=== PATIENT | female | born 1970 | race Caucasian/White ===

== ENCOUNTER 2019-09-07 08:58 | Emergency (ER) | payer OTHER ==
[2019-09-07 09:06] VITALS: BMI 23.3
--- NOTE | 2019-09-07 10:11 | PDOC ---
History of Present Illness - General Chief Complaint: Vaginal Bleeding Stated Complaint: 8WKS/ BLEEDING Time Seen by Provider: 09/07/19 09:47 History Source: Patient Exam Limitations: No Limitations - History of Present Illness Initial Comments: 09/07/19 10:05 48 yo female with 1 miscarriage and 1 early demise, currently 8 weeks preg (LMP 9/16) presents to te ED for 1 day of suprapubic and LLQ abdominal pain with vaginal bleeding. Pt followed by Dr[facility], only 1 appointment and no US yeast, no known lab results. Next appointment for US. Pt states she woke up with lower abdominal pain and some vaginal spotting, did not use pads, denies excessive blood loss and did not pass clots. Pain self resolved prior to exam. Denies F/C/N/V, back pain, CP, SOB, changes in bowel or bladder Past History - Past Medical History Allergies/Adverse Reactions: Allergies Allergy/AdvReac Type Severity Reaction Status Date / Time No Known Drug Allergies Allergy Verified 09/07/19 09:02 Home Medications: Ambulatory Orders Cephalexin [Keflex] 500 mg PO BID #14 capsule 09/07/19 Anemia: Yes Asthma: No Cancer: No Cardiac Disorders: No COPD: No Diabetes: No HTN: No Seizures: No Thyroid Disease: No - Surgical History Abdominal Surgery: Yes - Reproductive History Is Patient Now?: Yes (#): 5 Para: 2 Spontaneous : 2 - Psycho Social/Smoking Cessation Hx Smoking Status: No Smoking History: Never smoked Number of Cigarettes Smoked Daily: 0 Hx Alcohol Use: No Drug/Substance Use Hx: No Hx Substance Use Treatment: No Review of Systems - Review of Systems Constitutional: No: Chills, Fever Respiratory: No: Shortness of Breath Cardiac (ROS): No: Chest Pain : Yes: Other (vaginal bleeding, abdominal cramping). No: Burning, Dysuria, Frequency, Flank Pain Musculoskeletal: No: Back Pain Integumentary: No: Change in Color Neurological: No: Headache *Physical Exam - Vital Signs Last Vital Signs Temp Pulse Resp BP Pulse Ox 98.1 F 65 18 114/58 L 100 09/07/19 09:02 09/07/19 09:02 09/07/19 09:02 09/07/19 09:02 09/07/19 09:02 - Physical Exam General Appearance: Yes: Nourished, Appropriately Dressed. No: Apparent Distress HEENT: positive: EOMI Neck: positive: Supple. negative: Carotid bruit Respiratory/Chest: positive: Lungs Clear, Normal Breath Sounds. negative: Respiratory Distress, Accessory Muscle Use, Crackles, Rales, Rhonchi, Stridor, Wheezing Cardiovascular: positive: Regular Rhythm, Regular Rate, S1, S2. negative: Edema , JVD, Murmur Vascular Pulses: Dorsalis-Pedis (R): 4+, Doralis-Pedis (L): 4+ Female Pelvic Exam: positive: normal external exam, cervical os closed, normal adnexa, discharge (physiologic). negative: CMT, Bartholin mass, vaginal bleeding Gastrointestinal/Abdominal: positive: Flat, Soft. negative: Pulsatile Mass, Protuberent, Distended, Guarding, Rebound, Tenderness Musculoskeletal: negative: CVA Tenderness Extremity: positive: Normal Capillary Refill, Normal Inspection, Normal Range of Motion Integumentary: positive: Normal Color, Dry, Warm Neurologic: positive: Fully Oriented, Alert, Normal Mood/Affect ED Treatment Course - LABORATORY CBC & Chemistry Diagram: 09/07/19 10:05 09/07/19 10:05 - RADIOLOGY Radiology Studies Ordered: Category Date Time Status TRANSVAGINAL US PREG [US] Stat Ultrasound 09/07/19 10:04 Ordered Medical Decision Making - Medical Decision Making 09/07/19 13:25 48 yo female with 1 miscarriage and 1 early demise, currently 8 weeks preg (LMP 9/16) presents to te ED for 1 day of suprapubic and LLQ abdominal pain with vaginal bleeding. Pt followed by Dr[facility] D[facility], only 1 appointment and no US yeast, no known lab results. Next appointment for US. Pt states she woke up with lower abdominal pain and some vaginal spotting, did not use pads, denies excessive blood loss and did not pass clots. Pain self resolved prior to exam. Denies F/C/N/V, back pain, lightheadedness, dizziness, CP, SOB, changes in bowel or bladder vitals WNL DDX INLT: , laceration, UTI Hbg 8.7, not symptomatic anemia. Pt can f/u with PCP and OB appointment scheduled for Wednesday urine positive for UTI, will treat with Keflex 500 mg BID for 7 days Pelvic shows closed OS, no blood in the vagina, no CMT or adnexal tenderness US shows IUP 6 weeks 4 days, no FHR and likely demonstrating demise. May be to early to detect heart, will recommend f/u appointment with OB and US Pt BP noted to be in the 90s systolic, 500ml NS given, will reassess and DC home Pt BP on past charts shows low BP. Pt is not weak/dizzy/lightheaded and safe for DC home with strict return precautions Discharge - Discharge Information Problems reviewed: Yes Clinical Impression/Diagnosis: Vaginal bleeding affecting early Condition: Stable Disposition: HOME - Admission No - Additional Discharge Information Prescriptions: Cephalexin [Keflex] 500 mg PO BID #14 capsule - Follow up/Referral Referrals: Dakota Servin MD [Primary Care Provider] - - Patient Discharge Instructions Patient Printed Discharge Instructions: DI for Vaginal Bleeding During , DI for Vaginal Bleeding Additional Instructions: Consulte a hernandez mdico de atencin primaria y vaya a hernandez karina el para rashaad a hernandez mdico obstetra. Wilkinson el medicamento keflex segn lo prescrito sally los prximos 7 epstein para hernandez infeccin urinaria. Regrese a la juan jose de emergencias por sntomas nuevos o preocupantes, que incluyen, entre otros: aturdimiento, mareos, debilidad, fiebre, incapacidad para comer o beber, sangrado continuo. Krunal Print Language: ARMENIAN - Post Discharge Activity
--- NOTE | 2019-09-07 10:11 | PDOC ---
Attending Attestation - Resident Resident Name: ArmandoElijah - ED Attending Attestation I have performed the following: I have examined & evaluated the patient, The case was reviewed & discussed with the resident, I agree w/resident's findings & plan, Exceptions are as noted - HPI HPI: 09/07/19 10:09 currently 8 weeks preg (LMP 9/16) here with suprapubic and LLQ pain a/w vag bleeding since this morning. REports about 1 pads worth of bleeding with out clots since this morning. Denies fevers, chills, N/V/D, urinary sxs. Established care with Ob , Dr. Servin last week. Had labs drawn, she doesnt know results yet. Was scheduled for first US next week. Was not a planned . Otherwise, denies headaches, dizziness, cp, sob, LE edema, calf pain. - Physicial Exam PE: 09/07/19 11:44 Agree with resident exam - Medical Decision Making 09/07/19 11:44 48yo F presents to the ED at 8wk preg with vaginal bleeding. Vitals wnl Concern for threatened AB Plan: -pelvic exam -labs including B HCG -UA/UCx -TVUS -reassess 09/07/19 14:05 TVUS concerning for demise BHCG 11K No bleeding while in ED Exam with scant blood in vaginal vault, no midline or adnexal ttp. Abd exam benign Impression threatened Ab vs demise Pt's BP 90s/50s, likely pt's baseline as she states she often runs low. Denies dizziness, weakness, orthostatic dizziness Pt has f/u on Wednesday with her OB scheduled for rpt labs, f/u eval REturn precautions, including heavy bleeding (soaking through 2 or more pads/hr for more than 2 hours) discussed Pt expresses understanding I discussed the physical exam findings, ancillary test results and final diagnoses with the patient. I answered all of the patient's questions. The patient was satisfied with the care received and felt comfortable with the discharge plan and treatment plan. The patient will call their primary care physician within 24 hours to arrange follow-up and will return to the Emergency Department with any new, persistent or worsening symptoms.
[2019-09-07 10:23] LABS: BASO % 0.6 % (0-2.0); EOS % 1.1 % (0-4.5); HEMATOCRIT 26.9 % (32.4-45.2); HEMOGLOBIN 8.3 GM/dL (10.7-15.3); LYMPH % 26.2 % (8-40); MCHC 30.7 g/dl (32.0-36.0); MEAN CELL VOLUME 68.3 fl (80-96); MEAN PLT VOLUME 8.8 fl (7.5-11.1); MONO % 5.5 % (3.8-10.2); NEUT % 66.6 % (42.8-82.8); PLATELET COUNT 311 K/MM3 (134-434); RBC 3.94 M/mm3 (3.60-5.2); RDW 24.6 % (11.6-15.6)
[2019-09-07 10:25] LABS: EPI CELLS 5.1 /HPF (0-5/HPF); HYALINE CASTS 8 /lpf (0-8); URINE APPEARANCE CLOUDY; URINE BACTERIA 351.4 /hpf (NEGATIVE); URINE BILIRUBIN NEGATIVE (NEGATIVE); URINE COLOR YELLOW; URINE GLUCOSE (UA) NEGATIVE (NEGATIVE); URINE KETONE NEGATIVE (NEGATIVE); URINE LEUK ESTERASE 2+ (NEGATIVE); URINE NITRITE NEGATIVE (NEGATIVE); URINE PROTEIN NEGATIVE (NEGATIVE); URINE RBC 2 /hpf (0-4); URINE UROBILINOGEN 0.2 mg/dL (0.2-1.0); URINE WBC 28 /hpf (0-5)
[2019-09-07 10:41] LABS: INR 1.04 (0.83-1.09); PROTHROMBIN TIME (PATIENT) 12.3 SEC (9.7-13.0)
[2019-09-07 10:43] LABS: ACTIVATED PTT 24.3 SECONDS (25.2-36.5)
[2019-09-07 10:49] LABS: ALBUMIN 3.6 g/dl (3.4-5.0); BILIRUBIN,TOTAL 0.2 mg/dL (0.2-1); BLOOD UREA NITROGEN 8.3 mg/dL (7-18); CALCIUM 8.7 mg/dL (8.5-10.1); CREATININE 0.5 mg/dL (0.55-1.3); TOT PROT 7.5 g/dl (6.4-8.2)
[2019-09-07 11:16] LABS: ANISOCYTOSIS 3+; MACROCYTOSIS 0; OVALOCYTE 1+; PLATELET ESTIMATE NORMAL; TEAR DROP CELLS 1+
[2019-09-07] MEDS ORDERED: SODIUM CHLORIDE 500 ML IV STA (13:16)
[2019-09-07] MEDS ORDERED: NITROFURANTOIN MACROCRYSTAL 50 MG CAPSULE (FP) PO SCH (14:15)
[2019-09-07] MEDS ORDERED: CEPHALEXIN MONOHYDRATE 500 MG CAPSULE (UD) PO ONE (14:24)
[2019-09-07] MEDS ORDERED: CEPHALEXIN MONOHYDRATE 500 MG CAPSULE (UD) ONE (14:30)
[2019-09-07 14:37] VITALS: BP 93/56; PULSE 62; TEMP 98.6
== END 2019-09-07 14:39 | disposition home or self-care (01) ==
LOC: JER 08:58
PROC: 3E0337Z Introduction of Electrolytic and Water Balance Substance into Peripheral Vein, Percutaneous Approach (ICD-10-PCS; principal; 2019-09-07)
DX: O26.891 Other specified pregnancy related conditions, first trimester (principal); Z3A.08 8 weeks gestation of pregnancy
CPT/HCPCS: 36415; 76817-TC; 80053; 81003; 84702; 85025; 85610; 85730; 86850; 86900; 86901; 87086; 99283-25

== ENCOUNTER 2022-04-08 09:48 | Observation (INO) | payer OTHER ==
[2022-04-08 10:04] VITALS: BMI 24.9
[2022-04-08 12:09] LABS: BASO % 0.6 % (0-2.0); EOS % 4.2 % (0-4.5); HEMATOCRIT 23.4 % (32.4-45.2); LYMPH % 49.3 % (8-40); MCHC 29.6 g/dl (32.0-36.0); MEAN CELL VOLUME 59.7 fl (80-96); MEAN PLT VOLUME 8.9 fl (7.5-11.1); MONO % 7.4 % (3.8-10.2); NEUT % 38.5 % (42.8-82.8); PLATELET COUNT 422 10^3/uL (134-434); RBC 3.92 M/mm3 (3.60-5.2); RDW 22.1 % (11.6-15.6); WHITE BLOOD COUNT 4.7 K/mm3 (4.0-10.0)
[2022-04-08 12:16] LABS: INR 1.09 (0.83-1.09); PROTHROMBIN TIME (PATIENT) 12.5 SEC (9.7-13.0)
[2022-04-08 12:17] LABS: MCH 17.7 pg (25.7-33.7)
[2022-04-08 12:19] LABS: ACTIVATED PTT 23.7 SECONDS (25.2-36.5); HEMOGLOBIN 6.9 GM/dL (10.7-15.3)
[2022-04-08 12:44] LABS: CALCIUM 9.2 mg/dL (8.5-10.1)
[2022-04-08 12:45] LABS: BLOOD UREA NITROGEN 7.2 mg/dL (7-18)
[2022-04-08 12:46] LABS: ALBUMIN 4.1 g/dl (3.4-5.0)
[2022-04-08 12:47] LABS: ANISOCYTOSIS 3+; MACROCYTOSIS 0
[2022-04-08 12:48] LABS: CREATININE 0.6 mg/dL (0.55-1.3)
[2022-04-08 12:50] LABS: BILIRUBIN,TOTAL 0.5 mg/dL (0.2-1); TOT PROT 8.2 g/dl (6.4-8.2)
[2022-04-08 12:53] LABS: N-TERMINAL BNP 60.4 pg/ml (5-125)
[2022-04-08 14:54] LABS: RETICULOCYTES 1.89 % (0.5-1.5)
[2022-04-08 16:24] VITALS: TEMP 98
[2022-04-08 21:41] VITALS: BP 113/66; PULSE 63
[2022-04-08 21:53] LABS: HEMATOCRIT 26.2 % (32.4-45.2); MCHC 30.5 g/dl (32.0-36.0); MEAN PLT VOLUME 8.7 fl (7.5-11.1); PLATELET COUNT 378 10^3/uL (134-434); RBC 4.22 M/mm3 (3.60-5.2); RDW 24.5 % (11.6-15.6); WHITE BLOOD COUNT 5.8 K/mm3 (4.0-10.0)
[2022-04-08 21:55] LABS: MCH 18.9 pg (25.7-33.7)
[2022-04-09] MEDS ORDERED: FERROUS SO4 325 MG TABLET (FP) PO SCH (08:00)
== END 2022-04-08 23:38 | disposition home or self-care (01) ==
LOC: JER 09:48 → JERBED 14:46 → UNDOADMIN 14:46 → JERBED 15:50 → INTOOBSV 15:50
PROVIDERS: ADMIT Internal Medicine; ATTEND Internal Medicine
PROC: 30233N1 Transfusion of Nonautologous Red Blood Cells into Peripheral Vein, Percutaneous Approach (ICD-10-PCS; principal; 2022-04-08)
DX: Z91.14 Patient's other noncompliance with medication regimen (principal); R53.1 Weakness; D64.9 Anemia, unspecified; R06.02 Shortness of breath; Z86.16 Personal history of COVID-19
CPT/HCPCS: 0241U-QW; 36415; 36430; 80053; 82728; 83540; 83550; 83880; 84484; 85025; 85027; 85045; 85610; 85730; 86850; 86900; 86901; 86922; 93005; 93010; 99291; G0378; P9058

== ENCOUNTER 2022-07-09 04:39 | Day surgery (SDC) | payer OTHER ==
[2022-07-07 14:58] VITALS: BMI 24.3
[2022-07-09 10:28] VITALS: TEMP 97.8
[2022-07-09 11:04] VITALS: BP 100/58; PULSE 60; RESP 16
== END 2022-07-09 11:05 | disposition home or self-care (01) ==
LOC: JASU-ENDO 04:39
PROVIDERS: ATTEND Internal Medicine Gastroenterology
PROC: 0DJD8ZZ Inspection of Lower Intestinal Tract, Via Natural or Artificial Opening Endoscopic (ICD-10-PCS; principal; 2022-07-09 09:30)
DX: Z12.11 Encounter for screening for malignant neoplasm of colon (principal)
CPT/HCPCS: 81025

== ENCOUNTER 2023-04-22 20:29 | Observation (INO) | payer OTHER ==
[2023-04-22 20:40] VITALS: BMI 25.7
[2023-04-22] MEDS ORDERED: ACETAMINOPHEN 325 MG TABLET (FP) PO ONE (21:25)
[2023-04-22] MEDS ORDERED: ACETAMINOPHEN 325 MG TABLET (FP) ONE (21:26)
[2023-04-22 21:49] LABS: BASO % 0.5 % (0-2.0); EOS % 1.5 % (0-4.5); HEMATOCRIT 24.5 % (32.4-45.2); HEMOGLOBIN 7.4 GM/dL (10.7-15.3); LYMPH % 29.1 % (8-40); MCHC 30.1 g/dl (32.0-36.0); MEAN CELL VOLUME 63.6 fl (80-96); MEAN PLT VOLUME 9.1 fl (7.5-11.1); MONO % 7.4 % (3.8-10.2); NEUT % 61.5 % (42.8-82.8); PLATELET COUNT 307 10^3/uL (134-434); RBC 3.85 M/mm3 (3.60-5.2); RDW 19.2 % (11.6-15.6); WHITE BLOOD COUNT 9.5 K/mm3 (4.0-10.0)
[2023-04-22 21:52] LABS: MCH 19.2 pg (25.7-33.7)
[2023-04-22 22:03] LABS: POTASSIUM 4.5 mmol/L (3.5-5.1)
[2023-04-22 22:05] LABS: CALCIUM 8.8 mg/dL (8.5-10.1)
[2023-04-22 22:06] LABS: ALBUMIN 3.6 g/dl (3.4-5.0); BLOOD UREA NITROGEN 6.2 mg/dL (7-18)
[2023-04-22 22:09] LABS: CREATININE 0.6 mg/dL (0.55-1.3)
[2023-04-22 22:11] LABS: BILIRUBIN,TOTAL 0.6 mg/dL (0.2-1); TOT PROT 7.8 g/dl (6.4-8.2)
[2023-04-22 23:06] LABS: ANISOCYTOSIS 2+; MACROCYTOSIS 0; OVALOCYTE 1+; TEAR DROP CELLS 1+
[2023-04-23] MEDS ORDERED: ceFAZolin 2 GRAM PREMIX BAG IVPB ONE ×3 (08:11→08:19)
[2023-04-23] MEDS ORDERED: ACETAMINOPHEN 1000 MG/100 ML BAG IVPB ONE (08:11)
[2023-04-23] MEDS ORDERED: CEFAZOLIN 2 GM in DEXTROSE 5%-WATER - 50 ML IVPB ONE (08:18)
[2023-04-23] MEDS ORDERED: ACETAMINOPHEN INJECTION 100 ML IVPB ONE (08:28)
[2023-04-23] MEDS ORDERED: ceFAZolin SODIUM 1 GM VIAL ONE (08:29)
[2023-04-23] MEDS ORDERED: SODIUM CHLORIDE 0.9% 500 ML INFUS.BAG IV ONE (09:39)
[2023-04-23 10:34] LABS: BASO % 0.7 % (0-2.0); EOS % 2.7 % (0-4.5); HEMATOCRIT 23.2 % (32.4-45.2); LYMPH % 24.1 % (8-40); MCHC 29.6 g/dl (32.0-36.0); MEAN CELL VOLUME 65.3 fl (80-96); MEAN PLT VOLUME 9.8 fl (7.5-11.1); MONO % 7.5 % (3.8-10.2); PLATELET COUNT 272 10^3/uL (134-434); RBC 3.55 M/mm3 (3.60-5.2); RDW 18.7 % (11.6-15.6); WHITE BLOOD COUNT 6.8 K/mm3 (4.0-10.0)
[2023-04-23 10:35] LABS: MCH 19.3 pg (25.7-33.7)
[2023-04-23 10:36] LABS: HEMOGLOBIN 6.9 GM/dL (10.7-15.3)
[2023-04-23] MEDS ORDERED: ACETAMINOPHEN 325 MG TABLET (FP) PO PRN ×2 (11:07→11:11)
[2023-04-23] MEDS ORDERED: KETOROLAC TROMETHAMINE 15 MG/ML VIAL IVPUSH PRN (11:11)
[2023-04-23 12:08] LABS: RETICULOCYTES 2.22 % (0.5-1.5)
[2023-04-23 21:49] VITALS: RESP 18
[2023-04-24 09:51] LABS: HEMATOCRIT 29.9 % (32.4-45.2); HEMOGLOBIN 9.1 GM/dL (10.7-15.3); MCH 20.8 pg (25.7-33.7); MCHC 30.5 g/dl (32.0-36.0); MEAN CELL VOLUME 68.1 fl (80-96); MEAN PLT VOLUME 10.1 fl (7.5-11.1); PLATELET COUNT 310 10^3/uL (134-434); RBC 4.39 M/mm3 (3.60-5.2); RDW 23.9 % (11.6-15.6); WHITE BLOOD COUNT 6.1 K/mm3 (4.0-10.0)
[2023-04-24 14:02] VITALS: BP 97/54; PULSE 62; TEMP 97.5
== END 2023-04-24 23:29 | disposition home or self-care (01) ==
LOC: JERFT 20:29 → JERBED 04-23 10:54 → J6S 04-23 13:55
PROVIDERS: ADMIT Internal Medicine; ATTEND Student in an Organized Health Care Education/Training Program
PROC: 30233N1 Transfusion of Nonautologous Red Blood Cells into Peripheral Vein, Percutaneous Approach (ICD-10-PCS; principal; 2023-04-23)
PROC: 3E033NZ Introduction of Analgesics, Hypnotics, Sedatives into Peripheral Vein, Percutaneous Approach (ICD-10-PCS; 2023-04-23)
PROC: 3E03329 Introduction of Other Anti-infective into Peripheral Vein, Percutaneous Approach (ICD-10-PCS; 2023-04-23)
PROC: 3E0337Z Introduction of Electrolytic and Water Balance Substance into Peripheral Vein, Percutaneous Approach (ICD-10-PCS; 2023-04-23)
DX: N61.1 Abscess of the breast and nipple (principal); D50.9 Iron deficiency anemia, unspecified; Z29.8 Encounter for other specified prophylactic measures
CPT/HCPCS: 36415; 36430; 76604; 76942-TC; 80053; 82272; 82607; 82728; 82746; 82962; 83540; 83550; 83615; 84466; 84703; 85025; 85027; 85045; 86850; 86900; 86901; 86922; 87070; 87075; 87077; 87205; 87899; 93005; 93010; 96365; 96375; 99285-25; G0378; P9058

== ENCOUNTER → 2023-05-19 | Day surgery (SDC) | payer OTHER | END | disposition home or self-care (01) | LOC: JMAMMO 10:34 → JRADUS-SUR 10:34 → EDSTATUS 10:45 | PROVIDERS: ATTEND Registered Nurse | PROC: 0H9U3ZX Drainage of Left Breast, Percutaneous Approach, Diagnostic (ICD-10-PCS; principal; 2023-05-19) | DX: N60.02 Solitary cyst of left breast (principal) | CPT/HCPCS: 19000; 19001; 76641-TC-50; 76942-TC; 77066-TC; 87070; 87205; 87899; G0279-TC ==

== ENCOUNTER 2023-10-15 10:23 | Emergency (ER) | payer OTHER ==
[2023-10-15 10:39] VITALS: BP 116/61; PULSE 70; RESP 18; TEMP 98.6; BMI 26.5
[2023-10-15] MEDS ORDERED: IBUPROFEN 600 MG TABLET (FP) PO ONE ×2 (11:22→11:24)
[2023-10-15] MEDS ORDERED: ACETAMINOPHEN 500 MG TABLET (FP) PO ONE (11:22)
[2023-10-15] MEDS ORDERED: ACETAMINOPHEN 500 MG TABLET (FP) ONE (11:24)
== END 2023-10-15 14:08 | disposition home or self-care (01) ==
LOC: JERFT 10:23 → JER 10:23 → JERFT 14:08
DX: M25.511 Pain in right shoulder (principal); M79.601 Pain in right arm; M75.31 Calcific tendinitis of right shoulder
CPT/HCPCS: 73030-TC-RT-FY; 73060-TC-RT-FY; 99283-25